=== PATIENT | female | born 1985 | race Two or more races ===

== ENCOUNTER 2020-06-16 23:11 | Emergency (ER) | payer MEDICAID ==
[~2020-06-16] VITALS: Ht 147.3 cm; Wt 77.1 kg
--- NOTE | 2020-06-16 23:25 | NUR ---
ED Nurse Note:note for proper time, previous note at wrong time. pt arrived at [id number]
[2020-06-16] MEDS ORDERED: CLINDAMYCIN HC300 MG ORAL (23:26)
[2020-06-16] MEDS ORDERED: BENADRYL25 MG ORAL (23:26)
--- NOTE | 2020-06-16 23:27 | Emergency Room Report ---
History of Present Illness General Chief Complaint: Skin Rash/Abscess Source: Patient Present Illness HPI This a 35-year-old female with no past medical history. She presents with complaint of rash to her left arm. Onset last night. There is some redness to her wrist and antecubital area. Is itching. No new medication. No new pets or any exposure. Worse with scratching. Better with rest. Denies any other complaint. No pain. No drainage. Allergies: Coded Allergies: No Known Allergies (Unverified , 06/16/20) COVID-19 Screening Contact w/high risk pt: No Experienced COVID-19 symptoms?: No COVID-19 Testing performed PARK INTERPRETIVE RANGER: No Patient History Past Medical History: see triage record, old chart reviewed Past Surgical History: none Pertinent Family History: none Social History: Denies: smoking Last Menstrual Period: na Now: No Immunizations: other Reviewed Nursing Documentation: PMH: Agreed; PSxH: Agreed Nursing Documentation-PMH Past Medical History: No Stated History Review of Systems Eye: Denies: eye pain, blurred vision ENT: Denies: ear pain, nose congestion, throat swelling Respiratory: Denies: cough, shortness of breath Cardiovascular: Denies: chest pain, palpitations Gastrointestinal: Denies: abdominal pain, diarrhea, nausea, vomiting Musculoskeletal: Denies: back pain, joint pain Skin: Reports: rash Neurological: Denies: headache, numbness Endocrine: Denies: increased thirst, increased urine Hematologic/Lymphatic: Denies: easy bruising All Other Systems: negative except mentioned in HPI Physical Exam Vital Signs Date Time Temp Pulse Resp B/P (MAP) Pulse Ox O2 Delivery O2 Flow Rate FiO2 06/16/20 23:14 98.8 91 16 132/90 (104) 96 Room Air Vitals normal Sp02 EP Interpretation: reviewed, normal General Appearance: well appearing, no apparent distress, alert Head: normocephalic, atraumatic Eyes: bilateral eye PERRL, bilateral eye EOMI ENT: hearing grossly normal, normal pharynx Neck: full range of motion, supple, no meningismus Respiratory: chest non-tender, lungs clear, normal breath sounds Cardiovascular #1: regular rate, rhythm, no murmur Gastrointestinal: normal bowel sounds, non tender, no mass, no organomegaly, no bruit, non-distended Musculoskeletal: back normal, normal range of motion, gait/station normal, other - Left upper extremity: There is erythematous urticarial rash to her wrist and antecubital area. No fluctuance. No abscess. No crepitance. Psychiatric: mood/affect normal Medical Decision Making Diagnostic Impression: Primary Impression: Rash and other nonspecific skin eruption ER Course Patient with a rash to her left upper extremity. There is local inflammation and allergic reaction. This may be also cellulitis. No evidence of abscess or necrotizing fasciitis. Last Vital Signs Date Time Temp Pulse Resp B/P (MAP) Pulse Ox O2 Delivery O2 Flow Rate FiO2 06/16/20 23:14 98.8 91 16 132/90 (104) 96 Room Air Status: improved Disposition: HOME, SELF-CARE Condition: Stable Scripts Diphenhydramine Hcl* (BENADRYL*) 25 Mg Capsule 25 MG ORAL Q6H PRN for Itching, #30 CAP Prov: Benny Palm MD 06/16/20 Clindamycin Hcl (CLINDAMYCIN HCL) 300 Mg Capsule 300 MG ORAL THREE TIMES A DAY, #21 CAP Prov: Benny Palm MD 06/16/20 Additional Instructions: Follow-up with your doctor in 7 days. Return if symptoms worsen. Benny Palm MD Jun 16, 2020 23:26
[2020-06-16] MEDS ORDERED: Clindamycin 150mg cap ORAL ONE (23:30)
--- NOTE | 2020-06-16 23:49 | NUR ---
ER DISCHARGE NOTE: Patient is cleared to be discharged per ERMD, pt is aox4, on room air, with stable vital signs. pt was given dc and prescription instructions, pt was able to verbalize understanding, pt id band removed without complications. pt is able to ambulate with steady gait. pt took all belongings.
[2020-06-16 23:50] VITALS: BP 132/90
--- NOTE | 2020-06-16 23:50 | NUR ---
ED Nurse Note: Recieved pt from home, awake, alert and oriented x 4, pt here with c/o rash with itching for past 2 days after eating seafood, denies having allergy before, rash noted generalized with redness and itching, no sob or difficulties breathing, denies fevers, nausea or any other s/s.
[2020-06-17] MEDS ORDERED: PREDNISONE20 MG ORAL (17:35)
[2020-06-17] MEDS ORDERED: FAMOTIDINE20 MG ORAL (17:35)
== END 2020-06-16 23:50 | disposition home or self-care (01) ==
LOC: EMR 23:24
DX: L50.9 Urticaria, unspecified (principal); R21 Rash and other nonspecific skin eruption; T78.40XA Allergy, unspecified, initial encounter; X58.XXXA Exposure to other specified factors, initial encounter
CPT/HCPCS: 99282

== ENCOUNTER 2020-06-17 16:45 | Emergency (ER) | payer MEDICAID ==
[~2020-06-17] VITALS: Ht 149.9 cm; Wt 80.7 kg
[~2020-06-17 16:45] MED LIST: BENADRYL25 MG ORAL; CLINDAMYCIN HC300 MG ORAL
[2020-06-17] MEDS ORDERED: DiphenhydrAMINE 50mg/ml Inj IVP ONE (17:00)
[2020-06-17] MEDS ORDERED: Solu-MEDROL 125mg Inj IVP ONE (17:00)
--- NOTE | 2020-06-17 17:03 | Emergency Room Report ---
History of Present Illness General Chief Complaint: Allergic Reaction Source: Patient Present Illness HPI Patient is a 35-year-old female past medical history of obesity who presents to the ER complaining of allergic reaction. Patient states that she was seen here yesterday for hives to her left upper extremity. Patient states that she had shellfish prior to the onset of her symptoms but has never had a reaction to it in the past. Patient states that she was seen here yesterday and started on clindamycin and Benadryl. Patient states that now the rash has become more diffuse and is spread to her back and face. Patient complains of some dull chest pressure. She denies any shortness of breath, intraoral swelling, lower extremity pain or edema, recent travel, family history of early cardiovascular disease, or smoking. Allergies: Coded Allergies: No Known Allergies (Unverified , 06/16/20) COVID-19 Screening Contact w/high risk pt: No Experienced COVID-19 symptoms?: No COVID-19 Testing performed SPRAY WORKER: No Patient History Reviewed Nursing Documentation: PMH: Agreed; PSxH: Agreed Nursing Documentation-PMH Past Medical History: No Stated History Review of Systems All Other Systems: negative except mentioned in HPI Physical Exam Vital Signs Date Time Temp Pulse Resp B/P (MAP) Pulse Ox O2 Delivery O2 Flow Rate FiO2 06/17/20 16:50 98.8 94 20 140/88 (105) 95 Room Air Sp02 EP Interpretation: reviewed, normal General Appearance: no apparent distress, alert, GCS 15, non-toxic Head: normocephalic, atraumatic Eyes: bilateral eye normal inspection, bilateral eye PERRL ENT: hearing grossly normal, normal pharynx, no angioedema, normal voice Neck: full range of motion, supple/symm/no masses Respiratory: chest non-tender, lungs clear, normal breath sounds, speaking full sentences Cardiovascular #1: regular rate, rhythm Gastrointestinal: non tender, soft, no guarding, no rebound, overweight Rectal: deferred Musculoskeletal: normal inspection, no calf tenderness, no lower extremity edema Neurologic: belt worker III-XII nml as tested, oriented x3 Psychiatric: no suicidal/homicidal ideation Skin: other - Hives to patient's left upper extremity, upper back, anterior chest and face with no intraoral swelling Lymphatic: no adenopathy Medical Decision Making Diagnostic Impression: Primary Impression: Allergic reaction Additional Impression: Hives ER Course Patient presents with hives after eating shellfish. Patient has no reported history of allergic reaction to shellfish. I told her to avoid shellfish until she can get skin tested. Patient given IV fluids, Benadryl, Pepcid and prednisone. At 5:35 PM patient was reevaluated. Her hives have improved. Raquel serna never had wheezing, hypoxia, or intraoral swelling. I suspect the chest pain the patient is presenting with is atypical in nature. Aortic dissection was considered but in the physical exam the patient has equal pulses in all extremities, no new focal neurological deficits, no apparent diastolic murmur on the cardiac exam, and no widening of the mediastinum on CXR. Pulmonary embolism was also considered however I believe patient to be low risk given normal heart rate, no evidence of hypoxemia, no significant unilateral leg swelling, no recent travel, no history of cancer, no right axis deviation on EKG, and no recent surgery. I also doubt that this is acute coronary syndrome since EKG shows no STEMI, and the patients chest pain has resolved The patient was counseled that, though unlikely, the possibility of an emergent cause of chest pain may still be present and that the patient should return immediately if symptoms persists or worsen. I believe the patient is stable for discharge to follow-up with their PMD. EKG Diagnostic Results Troponin ordered: No - Allergic reaction EKG Time: 16:55 EP Interpretation: Faustina Berry MD Rate: normal - 90 bpm Rhythm: NSR ST Segments: no acute changes ASA given to the pt in ED: No Chest X-Ray Diagnostic Results Chest X-Ray Diagnostic Results : Chest X-Ray Ordered: Yes # of Views/Limited/Complete: 1 View Indication: Chest Pain Interpretation: no consolidation, no effusion, no pneumothorax Impression: No acute disease - Faustina Berry MD Last Vital Signs Date Time Temp Pulse Resp B/P (MAP) Pulse Ox O2 Delivery O2 Flow Rate FiO2 06/17/20 16:50 98.8 94 20 140/88 (105) 95 Room Air Disposition: HOME, SELF-CARE Condition: Stable Scripts Famotidine* (Pepcid 20mg tablet*) 20 Mg Tablet 20 MG ORAL TWICE A DAY for Gerd for 7 Days, #14 TAB 0 Refills Prov: Faustina Berry M.D. 06/17/20 Prednisone* (PREDNISONE*) 20 Mg Tablet 60 MG ORAL DAILY, #5 TAB Prov: Faustina Berry M.D. 06/17/20 Additional Instructions: The patient was provided with discharge instructions, notified to follow-up with a primary care doctor and or specialist in the next 24-48 hours, and to return to the ED if they have worsening of their symptoms. Please note that this report is being documented using [employer] technology. This can lead to erroneous entry secondary to incorrect interpretation by the dictating instrument. Faustina Berry M.D. Jun 17, 2020 17:03
--- NOTE | 2020-06-17 17:13 | NUR ---
ED Nurse Note: x-ray at bedside.
[2020-06-17 17:31] VITALS: BP 140/88
[2020-06-17] MEDS ORDERED: PREDNISONE20 MG ORAL (17:35)
[2020-06-17] MEDS ORDERED: FAMOTIDINE20 MG ORAL (17:35)
[2020-06-17 17:42] VITALS: BP 138/86
--- NOTE | 2020-06-17 17:42 | NUR ---
ER DISCHARGE NOTE: Patient is cleared to be discharged per ERMD, pt is aox4, on room air, with stable vital signs. pt was given dc and prescription instructions, pt was able to verbalize understanding, pt id band and iv site removed without complications. pt is able to ambulate with steady gait. pt took all belongings.
--- NOTE | 2020-06-18 15:01 | Diagnostic Imaging Report ---
Indication: Chest pain Technique: One view of the chest Comparison: none Findings: Lungs and pleural spaces are clear. Heart size is normal. Impression: No acute process
--- NOTE | 2020-06-20 17:01 | Cardiology Report ---
APPROVED REPORT EKG Measurement Heart [id number] <Conclusion> Normal sinus rhythm Normal ECG
== END 2020-06-17 17:42 | disposition home or self-care (01) ==
LOC: EMR 17:00
DX: T78.40XA Allergy, unspecified, initial encounter (principal); L50.9 Urticaria, unspecified; X58.XXXA Exposure to other specified factors, initial encounter; Y92.9 Unspecified place or not applicable; E66.3 Overweight; Z68.36 Body mass index [BMI] 36.0-36.9, adult; R07.9 Chest pain, unspecified
CPT/HCPCS: 71045; 93005; 96361; 96374; 96375; J1200; J2930; J7030; S0028; Z7502; 99284

== ENCOUNTER 2020-08-29 11:12 | Emergency (ER) | payer MEDICAID ==
[~2020-08-29] VITALS: Ht 149.9 cm; Wt 77.1 kg
[~2020-08-29 11:12] MED LIST changes: +FAMOTIDINE20 MG ORAL; +PREDNISONE20 MG ORAL
[2020-08-29 11:32] VITALS: BP 147/92
--- NOTE | 2020-08-29 11:33 | NUR ---
ED Nurse Note: Patient walked in to ED c/o a "small mass" inside her vaginal area onset this morning. Pt also c/o pressure on her pelvis area. Denies hematuria/ dysuria. No fever. Patient walked in with steady gait, AAO x4, VSS at this time.
--- NOTE | 2020-08-29 11:34 | NUR ---
ED Nurse Note: ER MD at bed side
--- NOTE | 2020-08-29 11:37 | Emergency Room Report ---
History of Present Illness General Chief Complaint: Female Urogenital Problems Source: Patient Present Illness HPI Disclaimer: Please note that this report is being documented using [employer] technology. This can lead to erroneous entry secondary to incorrect interpretation by the dictating instrument. HPI: 35-year-old female presents for evaluation of pelvic pressure. This morning she awoke complaining of increased pressure in the lower pelvis and lower quadrants when urinating. Denies hematuria or dysuria or vaginal bleeding or vaginal discharge. She feels that when she pushes to urinate there is a mass in the vagina. Says it is palpable just at the introitus. No prior history of mass or cancer. Patient is given for 3 times, no . LMP was 2 months ago. Denies fever, chills, diarrhea, vomiting, abdominal pain otherwise. PMH: Reviewed PSH: Reviewed Allergies: Reviewed Social Hx: Reviewed Allergies: Coded Allergies: No Known Allergies (Unverified , 06/16/20) COVID-19 Screening Contact w/high risk pt: No Experienced COVID-19 symptoms?: No COVID-19 Testing performed DRAWING HAND: No Patient History Last Menstrual Period: on depo shot Nursing Documentation-PMH Past Medical History: No Stated History Review of Systems All Other Systems: negative except mentioned in HPI Physical Exam Vital Signs Date Time Temp Pulse Resp B/P (MAP) Pulse Ox O2 Delivery O2 Flow Rate FiO2 08/29/20 11:14 98.2 117 19 147/92 (110) 100 Room Air General: Awake and alert, no acute distress HEENT: NC/AT. EOMI. Resp: Normal work of breathing Abdomen: Soft, nontender, nondistended. : External vagina unremarkable. There is a rugated mass in the vagina just below the urethra. No ulcerations, no vesicles, appears to be mucosal tissue. Thick discharge in the vaginal vault. No bleeding. Skin: Intact. No abrasions, laceration or rash over the exposed skin MSK: Normal tone and bulk. Moving all extremities. No obvious deformity. Neuro: Awake and alert. Mentating appropriately Medical Decision Making Diagnostic Impression: Primary Impression: Vaginal mass ER Course 35-year-old female presents for evaluation of vaginal mass. Palpable mass just below the urethra concerning for either neoplasm versus abscess versus uterine. Continues to pass urine. Urinalysis unremarkable as is wet mount. hCG is negative. Patient was taken for an ultrasound but no uterine abnormalities were identified. There was findings of bilateral ovarian cyst which are small as well as a nabothian cyst on the cervix. Patient require HEAD CHARGER follow-up and possible biopsy to determine the nature of the mass in her enteritis. I provided outpatient resources and stressed the importance of following it up. Right now she appears well and stable for outpatient follow-up. Instructed to return to the emergency department new or worsening symptoms. She understands agrees with treatment plan. Laboratory Tests Test 08/29/20 11:25 Urine Color Pale yellow Urine Appearance Clear Urine pH 5 (4.5-8.0) Urine Specific [place] 1.010 (1.005-1.035) Urine Protein Negative (NEGATIVE) Urine Glucose (UA) 4+ (NEGATIVE) H Urine Ketones Negative (NEGATIVE) Urine Blood 1+ (NEGATIVE) H Urine Nitrite Negative (NEGATIVE) Urine Bilirubin Negative (NEGATIVE) Urine Urobilinogen Normal MG/DL (0.0-1.0) Urine Leukocyte Esterase Negative (NEGATIVE) Urine RBC 0-2 /HPF (0 - 2) Urine WBC 0-2 /HPF (0 - 2) Urine Squamous Epithelial Cells Few /LPF (NONE/OCC) Urine Bacteria Few /HPF (NONE) Urine HCG, Qualitative Negative (NEGATIVE) Microbiology Date/Time Source Procedure Growth Status 08/29/20 11:45 Vaginal Wet Prep - Final Complete CT/MRI/US Diagnostic Results CT/MRI/US Diagnostic Results : Impression Final Report EXAM: US Pelvis Transabdominal and Transvaginal, Complete CLINICAL HISTORY: MASS TECHNIQUE: Real-time complete transabdominal and transvaginal pelvic ultrasound with image documentation. Transvaginal imaging was used for better evaluation of the endometrium and adnexa. COMPARISON: None FINDINGS: Uterus: Measures 7.2 x 3.6 x 4.0. Small nabothian cyst in the cervix. Endometrium measures 7.5 mm. Right ovary: Measures 3.1 x 1.9 x 2.6 cm. Normal appearance with normal color Doppler flow. Left ovary: Measures 3.3 x 1.6 x 2.6 cm. Normal appearance with normal color Doppler flow. Other: No free fluid. No adnexal mass. IMPRESSION: No acute abnormality. Radiologist: Khushi Burr M.D. Electronically Signed: 08/29/20 13:20 Study ready at 13:17 and initial results transmitted at 13:20 Last Vital Signs Date Time Temp Pulse Resp B/P (MAP) Pulse Ox O2 Delivery O2 Flow Rate FiO2 08/29/20 11:32 98.2 19 147/92 100 Room Air 08/29/20 11:14 117 Disposition: HOME, SELF-CARE Condition: Stable Mark Salazar MD Aug 29, 2020 11:37
[2020-08-29 12:05] LABS: APPEARANCE,URINE CLEAR; BILIRUBIN, URINE NEGATIVE (NEGATIVE); COLOR,URINE PALE YELLOW; GLUCOSE, URINE (UA) 4+ (NEGATIVE); KETONES,URINE NEGATIVE (NEGATIVE); LEUKOCYTE ESTERASE ,URINE NEGATIVE (NEGATIVE); NITRITE,URINE NEGATIVE (NEGATIVE); PH,URINE 5 (4.5-8.0); PROTEIN,URINE NEGATIVE (NEGATIVE); UROBILINOGEN,URINE NORMAL MG/DL (0.0-1.0)
[2020-08-29 13:18] VITALS: BP 132/78
--- NOTE | 2020-08-29 13:18 | NUR ---
ER DISCHARGE NOTE: Patient is cleared to be discharged per ERMD, pt is aox4, on room air, with stable vital signs. pt was given dc instructions, pt was able to verbalize understanding, pt id band removed. pt is able to ambulate with steady gait. pt took all belongings.
--- NOTE | 2020-08-29 13:20 | Diagnostic Imaging Report ---
EXAM: US Pelvis Transabdominal and Transvaginal, Complete CLINICAL HISTORY: MASS TECHNIQUE: Real-time complete transabdominal and transvaginal pelvic ultrasound with image documentation. Transvaginal imaging was used for better evaluation of the endometrium and adnexa. COMPARISON: None FINDINGS: Uterus: Measures 7.2 x 3.6 x 4.0. Small nabothian cyst in the cervix. Endometrium measures 7.5 mm. Right ovary: Measures 3.1 x 1.9 x 2.6 cm. Normal appearance with normal color Doppler flow. Left ovary: Measures 3.3 x 1.6 x 2.6 cm. Normal appearance with normal color Doppler flow. Other: No free fluid. No adnexal mass. IMPRESSION: No acute abnormality.
== END 2020-08-29 13:18 | disposition home or self-care (01) ==
LOC: EMR 11:45
DX: N88.8 Other specified noninflammatory disorders of cervix uteri (principal)
CPT/HCPCS: 76830; 76856; 81003; 81025; 87210; Z7502; 99284